=== PATIENT | male | born 1970 | race Caucasian/White ===

== ENCOUNTER 2017-10-27 19:26 | Emergency (ER) | payer BC ==
[~2017-10-27] VITALS: Ht 188 cm; Wt 133.3 kg
[~2017-10-27 19:26] MED LIST: METOPROLOL TART50 MG PO
[2017-10-27] MEDS ORDERED: ERYTHROMYC1 APPLICAT RIGHT EYE (20:47)
[2017-10-27 21:13] VITALS: BP 182/112
== END 2017-10-27 21:15 | disposition home or self-care (01) ==
LOC: EME 19:26
DX: S05.01XA Injury of conjunctiva and corneal abrasion without foreign body, right eye, initial encounter (principal); X58.XXXA Exposure to other specified factors, initial encounter; I10 Essential (primary) hypertension; Z98.84 Bariatric surgery status; F17.200 Nicotine dependence, unspecified, uncomplicated
CPT/HCPCS: 99281; 99284